=== PATIENT | male | born 1985 | race Caucasian/White ===

== ENCOUNTER 2018-04-15 08:50 | Emergency (ER) | payer SELFPAY ==
[~2018-04-15] VITALS: Ht 170.1 cm; Wt 88.0 kg
[~2018-04-15 08:50] MED LIST: AMOXICILLIN500 M2 PO; HYDROCODONE BIT1 T11 PO; XANAX1 MG PO; ZITHROMAX Z PA250 MG PO; [UNRECOGNIZED DRUG - OTHER]
[2018-04-15] MEDS ORDERED: MUTI VITAMIN (09:11)
[2018-04-15] MEDS ORDERED: IBUPROFEN600 MG PO (09:23)
[2018-04-15] MEDS ORDERED: AUGMENTIN 875875 MG PO (09:23)
[2018-04-15] MEDS ORDERED: CORTISPORIN SUS10 ML OT (09:23)
== END 2018-04-15 09:27 | disposition home or self-care (01) ==
LOC: ED 08:50
DX: H60.91 Unspecified otitis externa, right ear (principal); R23.8 Other skin changes; F17.200 Nicotine dependence, unspecified, uncomplicated

== ENCOUNTER 2018-09-20 14:01 | Emergency (ER) | payer SELFPAY ==
[~2018-09-20] VITALS: Ht 167.6 cm; Wt 81.6 kg
[~2018-09-20 14:01] MED LIST changes: +AUGMENTIN 875875 MG PO; +CORTISPORIN SUS10 ML OT; +IBUPROFEN600 MG PO; +MUTI VITAMIN
[2018-09-20] MEDS ORDERED: OMNICEF300 MG PO ×2 (15:53→16:07)
[2018-09-20] MEDS ORDERED: [UNRECOGNIZED DRUG - OTHER] PO (15:54)
== END 2018-09-20 15:59 | disposition home or self-care (01) ==
LOC: ED 14:01
DX: J02.9 Acute pharyngitis, unspecified (principal); R09.81 Nasal congestion; R50.9 Fever, unspecified; R52 Pain, unspecified

== ENCOUNTER 2018-11-21 20:35 | Emergency (ER) | payer SELFPAY ==
[~2018-11-21] VITALS: Ht 167.6 cm; Wt 83.9 kg
[~2018-11-21 20:35] MED LIST changes: +OMNICEF300 MG PO; +[UNRECOGNIZED DRUG - OTHER] PO
[2018-11-21] MEDS ORDERED: PROAIR HFA8.5 GM INH (21:42)
[2018-11-21] MEDS ORDERED: TESSALON PERLE100 M1 PO (21:42)
[2018-11-21] MEDS ORDERED: PREDNISONE20 M1 PO (21:42)
== END 2018-11-21 21:52 | disposition home or self-care (01) ==
LOC: ED 20:35
DX: J10.1 Influenza due to other identified influenza virus with other respiratory manifestations (principal); J20.9 Acute bronchitis, unspecified; R42 Dizziness and giddiness; F17.200 Nicotine dependence, unspecified, uncomplicated; Z79.2 Long term (current) use of antibiotics; Z79.899 Other long term (current) drug therapy

== ENCOUNTER 2019-02-27 05:08 | Emergency (ER) | payer SELFPAY ==
[~2019-02-27] VITALS: Ht 167.6 cm; Wt 81.6 kg
[~2019-02-27 05:08] MED LIST changes: +PREDNISONE20 M1 PO; +PROAIR HFA8.5 GM INH; +TESSALON PERLE100 M1 PO
[2019-02-27] MEDS ORDERED: CYCLOBENZAPRINE10 MG PO (05:18)
[2019-02-27] MEDS ORDERED: PREDNISONE50 MG PO (05:18)
== END 2019-02-27 05:37 | disposition home or self-care (01) ==
LOC: ED 05:08
DX: M54.6 Pain in thoracic spine (principal); M54.5 Low back pain; F17.200 Nicotine dependence, unspecified, uncomplicated; R11.0 Nausea; X50.0XXA Overexertion from strenuous movement or load, initial encounter; Y93.89 Activity, other specified; Y92.89 Other specified places as the place of occurrence of the external cause; Y99.0 Civilian activity done for income or pay

== ENCOUNTER 2019-03-04 15:34 | Emergency (ER) | payer SELFPAY ==
[~2019-03-04] VITALS: Ht 167.6 cm; Wt 86.2 kg
[~2019-03-04 15:34] MED LIST changes: +CYCLOBENZAPRINE10 MG PO; +PREDNISONE50 MG PO
[2019-03-04] MEDS ORDERED: CLEOCIN HCL150 MG PO (15:50)
== END 2019-03-04 15:59 | disposition home or self-care (01) ==
LOC: ED 15:34
DX: K04.7 Periapical abscess without sinus (principal)

== ENCOUNTER 2019-03-09 12:39 | Emergency (ER) | payer SELFPAY ==
[~2019-03-09] VITALS: Ht 167.6 cm; Wt 86.2 kg
[~2019-03-09 12:39] MED LIST changes: +CLEOCIN HCL150 MG PO
[2019-03-09 13:24] LABS: BASO % 0.2 % (0.0-1.0); EOS # 0.2 10*3/uL (0.0-0.4); EOS % 2.3 % (1.0-4.0); HEMATOCRIT 49.7 % (42.0-52.0); HEMOGLOBIN 16.9 g/dl (14.0-18.0); LYMPH # 2.5 10*3/uL (1.3-4.4); MONO # 0.7 10*3/uL (0.1-1.0); MONO % 8.4 % (3.0-9.0); NEUT # 5.4 10*3/uL (2.3-7.9); NEUT % 60.3 % (47.0-73.0); PLATELET COUNT AUTOMATED 269 10*3/uL (130-400); RED BLOOD COUNT 5.46 10*6/uL (4.50-5.90); RED CELL DISTRI WIDTH 12.2 % (0-14.5); WHITE BLOOD COUNT 8.9 10*3/uL (4.8-10.8)
[2019-03-09 13:38] LABS: ACT PARTIAL THROMBO TIME 25.9 SECONDS (20.0-32.1); INTERNATIONAL NORM RATIO 0.9 (2.0-3.5)
[2019-03-09 14:06] LABS: ALBUMIN 4.2 gm/dl (3.1-4.5); ALKALINE PHOSPHATASE 64 U/L (45-117); BUN 11 mg/dl (7-24); CHLORIDE 105 mmol/L (98-107); CREATININE 1.16 mg/dL (0.70-1.30); POTASSIUM 3.5 mmol/L (3.5-5.1); SGOT/AST 19 IU/L (3-35); SGPT/ALT 35 U/L (12-78); SODIUM 139 mmol/L (136-145); TOTAL PROTEIN 8.1 gm/dL (6.4-8.2)
== END 2019-03-09 15:20 | disposition home or self-care (01) ==
LOC: ED 12:39
PROVIDERS: Physician Assistant
DX: K08.89 Other specified disorders of teeth and supporting structures (principal); R79.1 Abnormal coagulation profile

== ENCOUNTER 2019-05-18 14:37 | Emergency (ER) | payer SELFPAY ==
[~2019-05-18] VITALS: Ht 167.6 cm; Wt 81.6 kg
[2019-05-18] MEDS ORDERED: AUGMENTIN 875-875 MG PO (14:49)
== END 2019-05-18 14:57 | disposition home or self-care (01) ==
LOC: ED 14:37
DX: K02.9 Dental caries, unspecified (principal); F17.200 Nicotine dependence, unspecified, uncomplicated

== ENCOUNTER 2019-06-24 07:16 | Emergency (ER) | payer SELFPAY ==
[~2019-06-24] VITALS: Ht 167.6 cm; Wt 81.6 kg
[~2019-06-24 07:16] MED LIST changes: +AUGMENTIN 875-875 MG PO
[2019-06-24] MEDS ORDERED: LIDEX 0.05% CRE15 GM T (08:17)
== END 2019-06-24 08:42 | disposition home or self-care (01) ==
LOC: ED 07:16
DX: L25.9 Unspecified contact dermatitis, unspecified cause (principal)

== ENCOUNTER 2019-11-17 06:07 | Emergency (ER) | payer SELFPAY ==
[~2019-11-17] VITALS: Ht 167.6 cm; Wt 90.7 kg
[~2019-11-17 06:07] MED LIST changes: +LIDEX 0.05% CRE15 GM T
[2019-11-17] MEDS ORDERED: PREDNISONE10 MG PO (07:03)
[2019-11-17] MEDS ORDERED: AMOXICILLIN500 M2 PO (07:03)
== END 2019-11-17 08:10 | disposition home or self-care (01) ==
LOC: ED 06:07
DX: J20.9 Acute bronchitis, unspecified (principal); J01.00 Acute maxillary sinusitis, unspecified; F41.9 Anxiety disorder, unspecified; F17.200 Nicotine dependence, unspecified, uncomplicated; Z79.899 Other long term (current) drug therapy

== ENCOUNTER 2020-07-15 06:47 | Emergency (ER) | payer MEDICAID ==
[~2020-07-15] VITALS: Ht 175.2 cm; Wt 81.6 kg
[~2020-07-15 06:47] MED LIST changes: +PREDNISONE10 MG PO
[2020-07-15] MEDS ORDERED: Motrin,Rufen800 MG PO (07:47)
[2020-07-15] MEDS ORDERED: CLINDAMYCIN150 MG PO (07:47)
== END 2020-07-15 08:02 | disposition home or self-care (01) ==
LOC: ED 06:47
DX: K02.9 Dental caries, unspecified (principal); F17.200 Nicotine dependence, unspecified, uncomplicated

== ENCOUNTER 2020-07-29 03:19 | Emergency (ER) | payer MEDICAID ==
[~2020-07-29] VITALS: Ht 167.6 cm; Wt 81.6 kg
[~2020-07-29 03:19] MED LIST changes: +CLINDAMYCIN150 MG PO; +Motrin,Rufen800 MG PO
[2020-07-29 04:13] LABS: BASO % 0.3 % (0.0-1.0); EOS # 0.2 10*3/uL (0.0-0.4); EOS % 2.6 % (1.0-4.0); LYMPH # 2.8 10*3/uL (1.3-4.4); LYMPH % 31.4 % (27.0-41.0); MEAN CELL VOLUME 90.4 fl (80.0-94.0); MEAN CORPUSCULAR HGB 30.1 pg (27.0-31.0); MEAN CORPUSCULAR HGB CONC 33.3 g/dl (33.0-37.0); MEAN PLATELET VOLUME 9.5 fl (9.6-12.3); MONO # 0.7 10*3/uL (0.1-1.0); MONO % 8.2 % (3.0-9.0); NEUT # 5.1 10*3/uL (2.3-7.9); PLATELET COUNT AUTOMATED 252 10*3/uL (130-400); RED BLOOD COUNT 5.75 10*6/uL (4.50-5.90); RED CELL DISTRI WIDTH 12.7 % (0-14.5); WHITE BLOOD COUNT 8.9 10*3/uL (4.8-10.8)
[2020-07-29 04:31] LABS: ALBUMIN 4.3 gm/dl (3.1-4.5); ALKALINE PHOSPHATASE 64 U/L (45-117); BUN 16 mg/dl (7-24); CHLORIDE 108 mmol/L (98-107); CREATININE 0.98 mg/dL (0.70-1.30); SGOT/AST 22 IU/L (3-35); SGPT/ALT 42 U/L (12-78); SODIUM 139 mmol/L (136-145)
[2020-07-29 04:33] LABS: TROPONIN I < 0.015 ng/ml (<0.045)
== END 2020-07-29 06:02 | disposition home or self-care (01) ==
LOC: ED 03:19
PROVIDERS: Emergency Medicine
DX: R07.89 Other chest pain (principal); Z79.899 Other long term (current) drug therapy

== ENCOUNTER 2021-04-18 14:03 | Emergency (ER) | payer OTHER ==
[~2021-04-18] VITALS: Ht 167.6 cm; Wt 86.2 kg
[2021-04-18] MEDS ORDERED: KENALOG 0.025%15 GM T (15:00)
[2021-04-18] MEDS ORDERED: VISTARIL25 MG PO (15:00)
== END 2021-04-18 15:30 | disposition home or self-care (01) ==
LOC: ED 14:03
DX: L23.7 Allergic contact dermatitis due to plants, except food (principal); Z79.2 Long term (current) use of antibiotics; Z79.899 Other long term (current) drug therapy

== ENCOUNTER 2021-07-11 15:26 | Emergency (ER) | payer OTHER ==
[~2021-07-11] VITALS: Ht 167.6 cm; Wt 81.6 kg
[~2021-07-11 15:26] MED LIST changes: +KENALOG 0.025%15 GM T; +VISTARIL25 MG PO
[2021-07-11] MEDS ORDERED: Cleocin150 MG PO (16:57)
== END 2021-07-11 16:52 | disposition home or self-care (01) ==
LOC: ED 15:26
DX: K04.7 Periapical abscess without sinus (principal); Z79.2 Long term (current) use of antibiotics; Z79.899 Other long term (current) drug therapy

== ENCOUNTER 2022-02-15 21:42 | Emergency (ER) | payer OTHER ==
[~2022-02-15] VITALS: Ht 167.6 cm; Wt 95.3 kg
[~2022-02-15 21:42] MED LIST changes: +Cleocin150 MG PO
== END 2022-02-16 03:00 | disposition left against medical advice (07) ==
LOC: ED 21:42
DX: Z53.21 Procedure and treatment not carried out due to patient leaving prior to being seen by health care provider (principal)

== ENCOUNTER 2022-10-11 11:40 | Emergency (ER) | payer OTHER ==
[2022-10-11 12:02] LABS: BASO # 0.1 10*3/uL (0.0-0.1); BASO % 0.6 % (0.0-1.0); EOS # 0.1 10*3/uL (0.0-0.4); EOS % 1.5 % (1.0-4.0); HEMATOCRIT 51.5 % (42.0-52.0); LYMPH # 2.3 10*3/uL (1.3-4.4); LYMPH % 29.1 % (27.0-41.0); MEAN CELL VOLUME 89.7 fl (80.0-94.0); MEAN CORPUSCULAR HGB 30.3 pg (27.0-31.0); MEAN CORPUSCULAR HGB CONC 33.8 g/dl (33.0-37.0); MEAN PLATELET VOLUME 8.8 fl (9.6-12.3); MONO # 0.5 10*3/uL (0.1-1.0); MONO % 6.5 % (3.0-9.0); NEUT # 4.8 10*3/uL (2.3-7.9); NEUT % 61.4 % (47.0-73.0); PLATELET COUNT AUTOMATED 239 10*3/uL (130-400); RED BLOOD COUNT 5.74 10*6/uL (4.50-5.90); RED CELL DISTRI WIDTH 12.4 % (0-14.5); WHITE BLOOD COUNT 7.8 10*3/uL (4.8-10.8)
[2022-10-11 12:15] LABS: ACT PARTIAL THROMBO TIME 28.6 SECONDS (20.0-32.1); INTERNATIONAL NORM RATIO 0.9 (2.0-3.5)
[2022-10-11 12:53] LABS: ALKALINE PHOSPHATASE 64 U/L (46-116); BUN 11 mg/dl (9-23); CHLORIDE 105 mmol/L (98-107); POTASSIUM 4.1 mmol/L (3.4-5.1); SGPT/ALT 29 U/L (10-49); TOTAL PROTEIN 7.6 gm/dL (6.0-8.0)
== END 2022-10-11 13:58 | disposition home or self-care (01) ==
LOC: ED 11:40
PROVIDERS: Emergency Medicine
DX: F41.9 Anxiety disorder, unspecified (principal)